=== PATIENT | female | born 1980 | race Caucasian/White ===

== ENCOUNTER 2017-04-07 10:42 | Inpatient (IN) | payer SELFPAY ==
[~2017-04-07] VITALS: Ht 165.1 cm; Wt 112.2 kg
--- NOTE | ~2017-04-07 | DS ---
PATIENT'S NAME: ASIA MERCADO [facility] AGE: 36 Y [address] ROOM: [id number] [place], [place] [address] LOCATION: GICU ADMIT DATE: 04/07/2017 Discharge Summary DISCHARGE DATE: 04/09/2017 FAMILY PHYSICIAN: Physician, Unknown ATTENDING PHYSICIAN: Jesus Alberto Meek ADMITTING DIAGNOSIS: Diabetic ketoacidosis. DISCHARGE DIAGNOSIS: Diabetic ketoacidosis, resolved. SECONDARY DIAGNOSES: 1. Diabetes mellitus, type 2. 2. Medical noncompliance. 3. Obesity. 4. Anion gap acidosis, metabolic. 5. Dehydration. 6. Acute kidney injury. 7. Lactic acidosis. HISTORY OF PRESENT ILLNESS: The patient is a 36-year-old female with known history of insulin-dependent diabetes and recurrent admission with severe DKA, who presents to the emergency room for the same reason. The patient reports that she has not been feeling well and tired and has stopped taking her insulin 2 days ago. She did not recall a reason for not taking the insulin. She stated that she forgot. She has a history of noncompliance with her medication with repeated admissions for DKA. The patient denies any preceding incidents such as infection or urinary tract like infection, chest pain, shortness of breath, fever, and chills. The patient also denies any history of depression, mood disorder, or attempt to hurt herself. HOSPITAL COURSE: Significant lab on admission was bicarb of 3, pH of 6.84, creatinine of 1.4, and potassium 5.5. The patient was admitted to the ICU and was started on insulin drip and IV fluids. The patient during her stay improved significantly. The patient continued to have insulin drip throughout the evening. The patient's anion gap closed when started back on her 40 of detemir and 20 units of aspart with meals with sliding scale. The patient's lactic acidosis improved, the patient's creatinine also improved, and hemodynamically she was stable. At the time of discharge, the patient's sodium 142, potassium 3.8, bicarb of 22, anion gap of 9, and blood glucose of 240. BUN and creatinine 4 and 0.8. Upon discharge, long discussion made about medical compliance. The patient reports that she has all her medications. Mother was present during her discharge and stated that they would get needles and she has prescription PATIENT'S NAME: ASIA MERCADO [facility] AGE: 36 Y [address] ROOM: [place] [address] LOCATION: [facility] ADMIT DATE: 04/07/2017 Discharge Summary DISCHARGE DATE: 04/09/2017 FAMILY PHYSICIAN: Physician, Unknown ATTENDING PHYSICIAN: Jesus Alberto Meek for it and will get it from her local pharmacy store. CONDITION: Stable. DISPOSITION: Home. DISCHARGE MEDICATION: Please see MAR. DISCHARGE INSTRUCTION: If the patient continued to have nausea, vomiting, abdominal pain, fever, chills, and elevated hyperglycemia, to go to the closest emergency department. FOLLOWUP: To follow up with her primary care physician within 1 week. MD RAJ REAVES/james /[id number] d: 04/10/17 0020 t: 04/10/17 1109, DISCHARGE SUMMARY
--- NOTE | ~2017-04-07 | ER ---
PATIENT'S NAME: ASIA MERCADO [facility] AGE: 36 Y [address] ROOM: [address] [address] LOCATION: [facility] ADMIT DATE: 04/07/2017 ER/Outpatient Report DISCHARGE DATE: FAMILY PHYSICIAN: PHYSICIAN, UNKNOWN ATTENDING PHYSICIAN: HANNAH MEEK Time of Arrival: 1042 hours. Time of Evaluation: 1042 hours. CHIEF COMPLAINT: Unresponsive. HISTORY OF PRESENT ILLNESS: The patient is a 36-year-old female who presents to the emergency department today with an unresponsive episode. The patient was brought in by a friend, a co-worker. The patient did not show for work yesterday, the co-worker went to check on her today and found her minimally responsive. She was breathing very fast and brought her in. The patient does have a history of DKA in the past and has had similar symptoms in the past. The patient does become more arousable and does answer questions. She reports she has not felt well over the past 2-3 days. She feels like she is in DKA again. She has had some nausea and vomiting. She reports she may not have been taking her insulin as she is supposed to. She denies any fevers or chills. No nausea or vomiting. No diarrhea or constipation. No chest pain. No shortness of breath. PAST MEDICAL HISTORY: Insulin-dependent diabetes. PAST SURGICAL HISTORY: and tonsillectomy. SOCIAL HISTORY: The patient does smoke and has for the past 20 years. Denies any alcohol use. Does have a history of marijuana use. ALLERGIES: NO KNOWN DRUG ALLERGIES. MEDICATIONS: Please see list. PRIMARY CARE DOCTOR: None. REVIEW OF SYSTEMS: PATIENT'S NAME: ASIA MERCADO [facility] AGE: 36 Y [address] ROOM: [facility] [address] [place], [place] [address] LOCATION: [facility] ADMIT DATE: 04/07/2017 ER/Outpatient Report DISCHARGE DATE: FAMILY PHYSICIAN: PHYSICIAN, UNKNOWN ATTENDING PHYSICIAN: HANNAH MEEK All systems are reviewed by myself and are negative with the exception of those discussed in HPI and past medical history. PHYSICAL EXAMINATION: VITAL SIGNS: Weight 102.4 kg. Blood pressure 172/98, pulse 112, respiratory rate 32, temperature 98.8, and oxygen saturation 100% on room air. GENERAL: The patient is a 36-year-old female who appears older than stated age. She is tachypneic. She is not following commands. HEENT: Head: Normocephalic, atraumatic. Pupils are equal, round, and reactive to light. Mucous membranes are dry. NECK: Supple. There is no nuchal rigidity. CARDIOVASCULAR: Tachycardic. No murmurs, rubs, or gallops. LUNGS: Tachypneic. No wheezes, rales, or rhonchi. ABDOMEN: Soft, nontender, and nondistended. No rebound, rigidity, or guarding. MUSCULOSKELETAL: The patient is able to move all 4 extremities. NEUROLOGICAL: Initially GCS: E 4, V 2, M 5. Downward going toes. No clonus. 2/4 reflexes. SKIN: Warm and dry. LABORATORY DATA AND IMAGING STUDIES: Labs and x-rays are obtained. EKG is obtained and interpreted by myself at 1058 hours shows sinus tachycardia with a rate of 114, normal axis, normal interval. No ST elevation, ST depression, or T-wave inversions. Venous Blood Gas: 6.8/16/80/-3.0. Cardiac enzymes are normal. Lactate 3.4. Coags are normal. CBC: White blood cell count 22.9, hemoglobin 17.1, hematocrit 55.4. CMP: Sodium 129, potassium 5.5, chloride 101, CO2 is less than 5, BUN 20, creatinine 1.4, and glucose 675. LFTs are normal. Magnesium is 2.5. Urinalysis shows 30 protein, 1000 glucose, 150 ketones, 10 blood. Procalcitonin 0.17. IMPRESSION: 1. Severe diabetic ketoacidosis. 2. Acute kidney injury. 3. Critical care time 35 minutes. 4. Initial visit. EMERGENCY DEPARTMENT COURSE: The patient was brought back to the examination room. Seen and evaluated by myself. IV is established x2. Laboratory analysis and imaging are obtained as described above. The patient is given 4 L of normal saline IV. Her potassium does return, the patient is given 10 units of regular insulin IV as well as started on insulin drip at 10 units/hour. The patient is given bicarb due to the patient's severe acidosis. I have discussed the results with the patient. Her beta hydroxybutyrate is greater than 60. I have discussed the PATIENT'S NAME: ASIA MERCADO [facility] AGE: 36 Y [address] ROOM: [id number] [place] [id number] LOCATION: [facility] ADMIT DATE: 04/07/2017 ER/Outpatient Report DISCHARGE DATE: FAMILY PHYSICIAN: PHYSICIAN, UNKNOWN ATTENDING PHYSICIAN: HANNAH MEEK patient will require admission to the hospital for further evaluation, treatment, and management of severe diabetic ketoacidosis. I have contacted Dr. Meek, he has seen and evaluated the patient down here in the emergency department. The patient has required a cumulative critical care time of 35 minutes, this did include discussion with the patient, talking with consultants, ordering tests, reviewing tests, as well as close monitoring of the patient with severe diabetic ketoacidosis and severe metabolic acidosis. DISPOSITION: The patient is admitted under the care of hospitalist and Dr. Meek in fair condition. DO PAULA PINTO/josel /[id number] d: 04/07/17 1815 t: 04/09/17 0708, OUTPATIENT REPORT
--- NOTE | ~2017-04-07 | HP ---
PATIENT'S NAME: ASIA MERCADO [facility] AGE: 36 Y [address] ROOM: [place] [address] LOCATION: [facility] ADMIT DATE: 04/07/2017 History & Physical DISCHARGE DATE: FAMILY PHYSICIAN: PHYSICIAN, UNKNOWN ATTENDING PHYSICIAN: HANNAH BECERRA DATE OF SERVICE: CHIEF COMPLAINT: DKA, altered mental status. HISTORY OF PRESENT ILLNESS: This is a 36-year-old female with known history of insulin-dependent diabetes and recurrent admissions for severe DKA, who presents to the emergency room for the same. The patient tells me today that she had been feeling tired and lethargic and stopped taking her insulin 2 days ago. She did not clearly tell me what the reason for her to not take her insulin was. But she does have a known history of noncompliance with her medications and repeated admissions with severe DKA such as this one in the past. The patient, otherwise, denies any preceding incidents suggesting infection or something similar to cause her DKA. She denies any cough, shortness of breath, dizziness, or lightheadedness. Denies any dysuria or frequency of urination type symptoms. She does complain of abdominal pain and some nausea over the past day or so. The patient is lethargic, but awake, alert, and oriented and is able to answer my questions accurately. The patient is overall very ill appearing. 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 SOCIAL HISTORY: The patient has a history of smoking and history of occasional marijuana use. Denies any other illicit drug use. FAMILY HISTORY: Mother has hypertension. Father has type 2 diabetes. REVIEW OF SYSTEMS: All systems have been reviewed and were all negative, except as described in the HPI. PHYSICAL EXAMINATION: VITAL SIGNS: Blood pressure 117/98, pulse 112, respiratory rate 32, temperature 98, saturating 100% on room air. GENERAL: The patient is awake, alert, and oriented x3, but with significant PATIENT'S NAME: ASIA MERCADO [facility] AGE: 36 Y [address] ROOM: [place] [address] LOCATION: [facility] ADMIT DATE: 04/07/2017 History & Physical DISCHARGE DATE: FAMILY PHYSICIAN: PHYSICIAN, UNKNOWN ATTENDING PHYSICIAN: HANNAH BECERRA work of breathing and overall ill appearing. HEENT: Dry mucosal membranes. No conjunctival pallor or scleral icterus noted. SKIN: Without rash or lesion, but flushed. CHEST: Increased work of breathing, but clear to auscultation bilaterally. HEART: S1, S2, tachycardic. Regular rate and rhythm. ABDOMEN: Mild tenderness to palpation diffusely, but soft. Positive bowel sounds. EXTREMITIES: Without edema. MUSCULOSKELETAL: Without joint swelling, effusion, or erythema noted. NEUROLOGIC: Grossly nonfocal. SIGNIFICANT LABS: Bicarb of less than 3, pH of 6.84. UA with positive ketones. ASSESSMENT AND PLAN: 1. Severe diabetic ketoacidosis. This appears to be related to noncompliance, which the patient has history of with recurrent admissions for diabetic ketoacidosis. The patient has leukocytosis, but no clear signs of infection and the chest x-ray is clear. UA clear. We will await any signs of infection anywhere if culture results show something. But in the meantime, just continue to treat aggressively for severe diabetic ketoacidosis, admit to the ICU with insulin infusion and diabetic ketoacidosis protocol for severe diabetic ketoacidosis. 2. Systemic inflammatory response syndrome. Response is likely due to severe diabetic ketoacidosis. We will await culture results if they show anything. Anticipate this to resolve with her diabetic ketoacidosis improving. 3. Insulin-dependent diabetes. We will involve clinical educator and re- educate the patient on managing diabetes and provide social support as available. Greater than 30 minutes were spent in providing critical care and more than 50% of time spent in direct patient care. MD ERIN HAN/james /[id number] D: [id number] T: HISTORY & PHYSICAL
[~2017-04-07 10:42] MED LIST: APIDRA100 UNIT/1 SUB-Q; COLACE100 MG PO; GLUCAGON/GLUCAGE1 MG IM; GLUCOSE4 GM PO; HUMULIN N100 UNIT/1 SUB-Q; LEVEMIR100 UNIT/1 SUB-Q; NICODERM (HABIT14 MG TOP; NOVOLOG100 UNIT/M SUB-Q; [UNRECOGNIZED DRUG - OTHER] PO; [UNRECOGNIZED DRUG - OTHER] PO
[2017-04-07 11:01] LABS: LACTATE 3.4 mEq/L (0.50-1.60); PO2 80 mmHg (80-90)
[2017-04-07 11:08] LABS: BICARBONATE < 3.0 mmol/L (18.0-23.0); PCO2 16 mmHg (35-45)
[2017-04-07 11:13] LABS: INR - (THERAPEUTIC) 0.96 (0.92-1.07); PROTIME 10.1 SECONDS (9.8-11.4)
[2017-04-07 11:24] LABS: BASOPHIL # 0.1 K/uL (0.0-0.2); BASOPHIL % 0.4 %; HEMATOCRIT 55.4 % (33.0-46.0); HEMOGLOBIN 17.1 g/dL (11.0-15.0); IMMATURE GRANULOCYTE # 0.7 K/uL (0.0-0.3); IMMATURE GRANULOCYTE % 2.9 %; LYMPHOCYTE # 1.9 K/uL (0.8-4.0); LYMPHOCYTE % 8.4 %; MCH 31.2 pg (27.0-34.0); MCHC 30.9 gm/dL (32.0-36.5); MCV 101.1 fl (83.0-98.0); MONOCYTE # 0.4 K/uL (0.0-1.0); MONOCYTE % 1.8 %; MPV 11.4 fl (9.4-12.4); NEUTROPHIL # (ANC) 19.8 K/uL (1.8-7.8); NEUTROPHIL % 86.5 %; NRBC % 0 /100WBC (0-0.00); PLATELET COUNT 354 K/uL (150-450); RDW-CV 12.8 % (11.9-14.6)
[2017-04-07 11:28] LABS: RBC 5.48 M/uL (3.50-5.50); WBC 22.9 K/uL (4.0-11.0)
[2017-04-07 11:32] LABS: CPK 59 IU/L (21-215)
[2017-04-07 11:37] LABS: ALBUMIN 3.6 gm/dL (3.5-5.0); ALK PHOS 187 IU/L (33-138); ALT 23 IU/L (12-78); BLOOD UREA NITROGEN 20 mg/dL (6-24); CALCIUM 8.3 mg/dL (8.5-10.5); CHLORIDE 101 mMol/L (96-110); CREATININE 1.4 mg/dL (0.5-1.1); SODIUM 129 mMol/L (135-145); TOTAL BILIRUBIN 0.4 mg/dL (0.0-1.5); TOTAL PROTEIN 8.2 g/dL (6.0-8.4)
[2017-04-07 11:39] LABS: AST 20 IU/L (10-40); CO2 < 5 mMol/L (22-32); POTASSIUM 5.5 mMol/L (3.7-5.1)
[2017-04-07 12:05] LABS: BILIRUBIN URINE NEGATIVE (NEGATIVE); BLOOD URINE 10 /UL (NEGATIVE); COLOR URINE COLORLESS (YELLOW); GLUCOSE URINE 1000 mg/dL (NEGATIVE); KETONE URINE 150 mg/dL (NEGATIVE); LEUKOCYTES URINE NEGATIVE /UL (NEGATIVE); NITRITE URINE NEGATIVE (NEGATIVE); PROTEIN URINE 30 mg/dL (NEGATIVE); TURBIDITY URINE 1+ (CLEAR); UROBILINOGEN URINE NORMAL (NORMAL)
[2017-04-07 12:15] LABS: BACTERIA URINE FEW (NEGATIVE); EPITHELIAL URINE 0-2 #/HPF (NEGATIVE); RBC URINE 0-2 #/HPF (NEGATIVE); WBC URINE 0-2 #/HPF (NEGATIVE)
[2017-04-07 14:24] LABS: BICARBONATE < 3.0 mmol/L (18.0-23.0); PCO2 9 mmHg (35-45); PO2 141 mmHg (80-90)
[2017-04-07] MEDS ORDERED: LEVEMIR100 UNIT/1 SUB-Q (14:46)
[2017-04-07 16:18] LABS: BICARBONATE 3.7 mmol/L (18.0-23.0); PCO2 20 mmHg (35-45); PO2 50 mmHg (80-90)
[2017-04-07 16:35] LABS: ANION GAP 25.3 (10.0-19.0); POTASSIUM 4.3 mMol/L (3.7-5.1)
[2017-04-07 19:57] LABS: PCO2 23 mmHg (35-45); PO2 54 mmHg (80-90)
[2017-04-07 20:01] LABS: BICARBONATE 7.1 mmol/L (18.0-23.0)
[2017-04-07 20:15] LABS: POTASSIUM 4.1 mMol/L (3.7-5.1)
[2017-04-07 20:16] LABS: ANION GAP 19.1 (10.0-19.0)
[2017-04-08] LABS: POTASSIUM 3.7 mMol/L (3.7-5.1)
[2017-04-08 00:02] LABS: ANION GAP 13.7 (10.0-19.0)
[2017-04-08 00:38] LABS: BICARBONATE 13.3 mmol/L (18.0-23.0); PCO2 34 mmHg (35-45); PO2 37 mmHg (80-90)
[2017-04-08 04:04] LABS: PCO2 35 mmHg (35-45); PO2 43 mmHg (80-90)
[2017-04-08 04:07] LABS: BASOPHIL % 0.2 %; EOSINOPHIL % 0.2 %; HEMOGLOBIN 14.4 g/dL (11.0-15.0); IMMATURE GRANULOCYTE # 0.2 K/uL (0.0-0.3); LYMPHOCYTE # 2.6 K/uL (0.8-4.0); LYMPHOCYTE % 14.1 %; MCH 31.4 pg (27.0-34.0); MONOCYTE # 1.4 K/uL (0.0-1.0); MONOCYTE % 7.5 %; MPV 10.3 fl (9.4-12.4); NEUTROPHIL # (ANC) 14.3 K/uL (1.8-7.8); NRBC % 0 /100WBC (0-0.00); RBC 4.59 M/uL (3.50-5.50); RDW-CV 12.9 % (11.9-14.6)
[2017-04-08 04:21] LABS: HEMATOCRIT 42.9 % (33.0-46.0); MCHC 33.6 gm/dL (32.0-36.5); MCV 93.5 fl (83.0-98.0); PLATELET COUNT 253 K/uL (150-450); WBC 18.6 K/uL (4.0-11.0)
[2017-04-08 04:29] LABS: POTASSIUM 3.4 mMol/L (3.7-5.1)
[2017-04-08 04:31] LABS: ANION GAP 12.4 (10.0-19.0)
[2017-04-08 08:06] LABS: BICARBONATE 11.5 mmol/L (18.0-23.0); PCO2 33 mmHg (35-45)
[2017-04-08 08:13] LABS: PO2 61 mmHg (80-90)
[2017-04-08 08:21] LABS: ALBUMIN 2.6 gm/dL (3.5-5.0); ALK PHOS 115 IU/L (33-138); ALT 14 IU/L (12-78); AST 7 IU/L (10-40); CALCIUM 7.5 mg/dL (8.5-10.5); CHLORIDE 114 mMol/L (96-110); CREATININE 0.8 mg/dL (0.5-1.1); POTASSIUM 3.7 mMol/L (3.7-5.1); SODIUM 140 mMol/L (135-145); TOTAL PROTEIN 5.7 g/dL (6.0-8.4)
[2017-04-08 08:22] LABS: ANION GAP 16.7 (10.0-19.0); BLOOD UREA NITROGEN 8 mg/dL (6-24); CO2 13 mMol/L (22-32); TOTAL BILIRUBIN 0.3 mg/dL (0.0-1.5)
[2017-04-08 13:31] LABS: PCO2 32 mmHg (35-45); PO2 60 mmHg (80-90)
[2017-04-08 13:37] LABS: BICARBONATE 14.7 mmol/L (18.0-23.0)
[2017-04-08 13:55] LABS: POTASSIUM 4.1 mMol/L (3.7-5.1)
[2017-04-08 13:59] LABS: ANION GAP 13.1 (10.0-19.0)
[2017-04-08 17:53] LABS: BICARBONATE 16.8 mmol/L (18.0-23.0); PCO2 35 mmHg (35-45); PO2 59 mmHg (80-90)
[2017-04-08 18:05] LABS: ANION GAP 12.9 (10.0-19.0); POTASSIUM 3.9 mMol/L (3.7-5.1)
[2017-04-08 20:19] LABS: ALBUMIN 2.8 gm/dL (3.5-5.0); ALK PHOS 124 IU/L (33-138); ALT 17 IU/L (12-78); ANION GAP 12.3 (10.0-19.0); AST 12 IU/L (10-40); BLOOD UREA NITROGEN 3 mg/dL (6-24); CALCIUM 7.8 mg/dL (8.5-10.5); CHLORIDE 115 mMol/L (96-110); CO2 19 mMol/L (22-32); CREATININE 0.8 mg/dL (0.5-1.1); POTASSIUM 3.3 mMol/L (3.7-5.1); SODIUM 143 mMol/L (135-145); TOTAL PROTEIN 6.3 g/dL (6.0-8.4)
[2017-04-08 20:20] LABS: TOTAL BILIRUBIN 0.4 mg/dL (0.0-1.5)
[2017-04-09 05:42] LABS: BASOPHIL % 0.3 %; EOSINOPHIL # 0.1 K/uL (0.0-0.5); EOSINOPHIL % 0.6 %; HEMATOCRIT 41.7 % (33.0-46.0); HEMOGLOBIN 14.1 g/dL (11.0-15.0); IMMATURE GRANULOCYTE # 0.1 K/uL (0.0-0.3); IMMATURE GRANULOCYTE % 0.8 %; LYMPHOCYTE % 33.4 %; MCH 31.3 pg (27.0-34.0); MCHC 33.8 gm/dL (32.0-36.5); MCV 92.7 fl (83.0-98.0); MONOCYTE # 0.7 K/uL (0.0-1.0); MONOCYTE % 7.3 %; MPV 10.4 fl (9.4-12.4); NEUTROPHIL # (ANC) 5.2 K/uL (1.8-7.8); NEUTROPHIL % 57.6 %; NRBC % 0 /100WBC (0-0.00); PLATELET COUNT 226 K/uL (150-450); RDW-CV 13.5 % (11.9-14.6); WBC 9.1 K/uL (4.0-11.0)
[2017-04-09 06:00] LABS: ALBUMIN 2.6 gm/dL (3.5-5.0); CREATININE 0.9 mg/dL (0.5-1.1); POTASSIUM 4.1 mMol/L (3.7-5.1); TOTAL PROTEIN 5.8 g/dL (6.0-8.4)
[2017-04-09 06:01] LABS: ANION GAP 16.1 (10.0-19.0); TOTAL BILIRUBIN 0.3 mg/dL (0.0-1.5)
[2017-04-09 14:00] LABS: ALBUMIN 2.6 gm/dL (3.5-5.0); ALK PHOS 111 IU/L (33-138); ALT 19 IU/L (12-78); ANION GAP 12.8 (10.0-19.0); AST 17 IU/L (10-40); BLOOD UREA NITROGEN 4 mg/dL (6-24); CALCIUM 7.9 mg/dL (8.5-10.5); CHLORIDE 111 mMol/L (96-110); CO2 22 mMol/L (22-32); CREATININE 0.8 mg/dL (0.5-1.1); POTASSIUM 3.8 mMol/L (3.7-5.1); SODIUM 142 mMol/L (135-145); TOTAL PROTEIN 5.5 g/dL (6.0-8.4)
[2017-04-09 14:04] LABS: TOTAL BILIRUBIN 0.2 mg/dL (0.0-1.5)
== END 2017-04-09 17:50 | disposition disaster alternative care site (69) | DRG 638 ==
LOC: GMED 10:42 → GICU 13:22
PROVIDERS: Emergency Medicine; Internal Medicine; ADMIT Internal Medicine
DX: E13.10 Other specified diabetes mellitus with ketoacidosis without coma (principal); N17.9 Acute kidney failure, unspecified; R65.10 Systemic inflammatory response syndrome (SIRS) of non-infectious origin without acute organ dysfunction; E86.0 Dehydration; Z79.4 Long term (current) use of insulin; Z91.14 Patient's other noncompliance with medication regimen
CPT/HCPCS: J1650; J3480; J7030; J7040; J7050